=== PATIENT | male | born 2000 | race Caucasian/White ===

== ENCOUNTER 2024-03-14 16:45 | Emergency (ER) | payer OTHER, SELFPAY ==
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
[2024-03-14 17:02] VITALS: BP 140/89; PULSE 72; RESP 16; TEMP 37.7; O2SAT 98
--- NOTE | 2024-03-14 17:10 | ECG_ITS ---
Test Date: 2024-03-14 17:22:34 Measurements Intervals [place] Rate: 61 P: 14 CA: 152 QRS: -6 QRSD: 116 T: 14 QT: 368 QTc: 372 Interpretive Statements SINUS RHYTHM MINOR RV CONDUCTION DELAY OTHERWISE NORMAL ECG No previous ECG available for comparison Electronically Signed On 03-14-2024 18:23:53 CDT by Tom Sullvian M.D.
== END 2024-03-14 17:47 | disposition home or self-care (01) ==
PROVIDERS: Emergency Provider Nurse Practitioner Family
DX: R07.89 Other chest pain (principal)
CPT/HCPCS: 71046; 93005; 99213; G0463